=== PATIENT | female | born 1985 | race Two or more races ===

== ENCOUNTER 2019-04-23 12:12 | Emergency (ER) | payer OTHER ==
[~2019-04-23] VITALS: Ht 167.6 cm; Wt 72.6 kg
[2019-04-23 12:34] VITALS: BP 119/82
--- NOTE | 2019-04-23 13:00 | NUR ---
Patient discharged to home in stable condition. Written and verbal after care instructions given. Patient verbalizes understanding of instruction.
== END 2019-04-23 13:02 | disposition home or self-care (01) ==
LOC: ER 12:21
DX: J32.9 Chronic sinusitis, unspecified (principal)

== ENCOUNTER 2021-10-10 15:01 | Emergency (ER) | payer OTHER ==
[~2021-10-10] VITALS: Ht 165.1 cm; Wt 72.6 kg
--- NOTE | 2021-10-10 15:22 | NUR ---
BIBHUSBAND FROM HOME C/O SINUS CONGESTION AND COUGH X 3DAYS. IN ROOM AIR AND OXYGEN SATURATION LEVEL IS AT 100%. RESPIRATION REGULAR AND UNLABORED. WILL CONTINUE TO MONITOR THE PATIENT.
[2021-10-10 17:02] LABS: BASOPHILS % (AUTO) 0.3 % (0.0-2.0); EOSINOPHILS % (AUTO) 0.4 % (0.0-6.0); HEMATOCRIT 37 % (33-45); HEMOGLOBIN 12.7 g/dL (11.5-14.8); LYMPHOCYTES # (AUTO) 0.5 K/uL (0.8-4.8); LYMPHOCYTES % (AUTO) 11.6 % (20.0-44.0); MEAN CORPUSCULAR HGB CONC 34 g/dl (31.0-36.0); MEAN CORPUSCULAR VOLUME 89 fL (82-100); MONOCYTES # (AUTO) 0.5 K/uL (0.1-1.30); MONOCYTES % (AUTO) 10.9 % (2.0-12.0); NEUTROPHILS # (AUTO) 3.2 K/uL (1.8-8.9); NEUTROPHILS % (AUTO) 76.8 % (43.0-81.0); PLATELET COUNT (AUTO) 194 K/uL (150-450); RED BLOOD CELL COUNT(AUTO) 4.18 MIL/uL (4.0-5.2); WHITE BLOOD COUNT (AUTO) 4.2 K/uL (4.3-11.0)
--- NOTE | 2021-10-10 17:16 | NUR ---
COVID SWAB DONE AND SENT TO LAB
[2021-10-10 17:22] LABS: ALBUMIN 4.1 g/dL (3.4-5.0); BILIRUBIN,DIRECT 0.1 mg/dL (0.0-0.2); BILIRUBIN,TOTAL 0.5 mg/dL (0.2-1.0); CALCIUM, SERUM 8.8 mg/dL (8.5-10.1); CREATININE 0.5 mg/dL (0.6-1.3); POTASSIUM 3.8 mmol/L (3.5-5.1); TOTAL PROTEIN, SERUM 8.1 g/dL (6.4-8.2)
[2021-10-10 18:32] VITALS: BP 134/89
--- NOTE | 2021-10-10 18:32 | NUR ---
Patient discharged to home in stable condition. Written and verbal after care instructions given. Patient verbalizes understanding of instruction.
--- NOTE | 2021-10-10 18:34 | NUR ---
COVID POSITIVE PER LAB, [facility]
== END 2021-10-10 18:39 | disposition home or self-care (01) ==
LOC: ER 15:07
DX: U07.1 COVID-19 (principal); D72.810 Lymphocytopenia; S60.222A Contusion of left hand, initial encounter; S60.221A Contusion of right hand, initial encounter; X58.XXXA Exposure to other specified factors, initial encounter; Y92.89 Other specified places as the place of occurrence of the external cause; R03.0 Elevated blood-pressure reading, without diagnosis of hypertension
CPT/HCPCS: 99283; 87426; 85025; 80048; 80076; 36415; 85730; C9803

== ENCOUNTER 2024-02-07 15:57 | Emergency (ER) | payer MEDICAID, OTHER | END 2024-02-07 16:21 | disposition left against medical advice (07) | LOC: ER 16:03 | DX: M79.643 Pain in unspecified hand (principal); Z53.21 Procedure and treatment not carried out due to patient leaving prior to being seen by health care provider ==